=== PATIENT | female | born 1985 | race African-American/Black ===

== ENCOUNTER 2018-03-02 14:02 | Emergency (ER) | payer MEDICAID ==
[~2018-03-02] VITALS: Ht 157.5 cm; Wt 81.6 kg
[2018-03-02] MEDS ORDERED: Ketorolac 30mg Inj IM ONE (14:45)
[2018-03-02] MEDS ORDERED: EXCEDRIN MIGRA1 EACH PO (15:00)
--- NOTE | 2018-03-02 15:00 | Emergency Room Report ---
History of Present Illness General Chief Complaint: Headache Source: Patient Present Illness HPI 32-year-old female patient presents ER complaining of headache for the past 2 days. Patient reports headache is frontal bilaterally. Denies worse headache of life. Reports history of migraines, states this feels similar. Denies vomiting or vision changes. Reports headache was slow in onset. Denies congestion or fever. Reports up to date on vaccinations. Denies photophobia or phonophobia. Reports neck pain this time. Denies recent injury or trauma. Denies fever, chest pain, shortness of breath. reports previously took medication, does not remember the name of the medication, for migraines. Also reports history of taking sumatriptan. Reports has not seen primary care provider neurology specialist and "a while". Denies vomiting. Allergies: Coded Allergies: No Known Allergies (Unverified , 03/02/18) Patient History Past Medical History: see triage record Last Menstrual Period: 02/24/18 Reviewed Nursing Documentation: PMH: Agreed; PSxH: Agreed Nursing Documentation-PMH Past Medical History: No History, Except For Hx Cardiac Problems: No - migraine Review of Systems All Other Systems: negative except mentioned in HPI Physical Exam Vital Signs Date Time Temp Pulse Resp B/P (MAP) Pulse Ox O2 Delivery O2 Flow Rate FiO2 03/02/18 14:10 98.1 92 18 130/89 98 Room Air Sp02 EP Interpretation: reviewed, normal General Appearance: well appearing, no apparent distress, alert, GCS 15, non- toxic Head: normocephalic, atraumatic, other - TTP over frontal and maxillary sinuses Eyes: bilateral eye normal inspection, bilateral eye PERRL ENT: hearing grossly normal, normal pharynx, no angioedema, normal voice, TMs + canals normal, uvula midline, moist mucus membranes, nasal congestion Neck: full range of motion Respiratory: lungs clear, normal breath sounds, no rhonchi, no respiratory distress, no accessory muscle use, no wheezing, speaking full sentences Cardiovascular #1: regular rate, rhythm, no edema Gastrointestinal: non tender, soft, no mass, non-distended, no guarding, no rebound Genitourinary: no CVA tenderness Musculoskeletal: back normal, digits/nails normal, gait/station normal, normal range of motion, non-tender Neurologic: alert, oriented x3, responsive, water filterer helper III-XII nml as tested, motor strength/tone normal, sensory intact, cerebellar normal, normal gait, speech normal, other - negative Kernig, negative Brudzinski Psychiatric: mood/affect normal Skin: no rash Lymphatic: no adenopathy Medical Decision Making PA Attestation Dr. Christian is my supervising Physician whom patient management has been discussed with. Diagnostic Impression: Primary Impression: Headache Additional Impression: Sinusitis ER Course Pt presents to ED c/o headache. DDX considered but are not limited to migraine, cluster GERMAIN, tension GERMAIN, meningitis, ICH, meningitis, HTN, influenza. cranial nerves intact states the, no focal neuro deficits, does not require imaging at this time. VITAL SIGNS are WNL, patient is afebrile ER COURSE negative Kernig, negative Brudzinski, patient afebrile, low suspicion for meningitis. patient reports history of migraine. Advised patient to follow-up with primary care provider and discuss referral to neurology for further workup and evaluation. Provide patient with Reglan, Benadryl, Toradol. Patient reports symptoms still present. On physical exam maxillary sinus is tender to palpation, nasal congestion noted , likely sinusitis, possibly attributing to headache symptoms. will provide patient with Rx for sinusitis. follow with primary care provider. ER precautions given. DISCHARGE: -Rx provided Excedrin Migraine Rx provided for Sudafed Rx provided for Flonase At this time pt is stable for d/c to home. Patient is resting comfortably, in no acute distress, nontoxic appearing, talking and smiling. Will provide with patient care instructions and any necessary prescriptions. Patient to take medication as instructed. Care plan and follow-up instructions provided. Patient questions asked and answered. Patient instructed to follow-up with primary care provider in the next 3 days and discuss further referral with PCP to neurologist. ER precautions given. Patient instructed to return to ER immediately for any new or worsening of symptoms including but not limited to fever, neck stiffness , vision changes, and neurological symptoms. - Please note that this Emergency Department Report was dictated using [employer] snuff technology software, occasionally this can lead to erroneous entry secondary to interpretation by the dictation equipment. Last Vital Signs Date Time Temp Pulse Resp B/P (MAP) Pulse Ox O2 Delivery O2 Flow Rate FiO2 03/02/18 14:10 98.1 92 18 130/89 98 Room Air Status: improved Disposition: HOME, SELF-CARE Condition: Stable Scripts Fluticasone Propionate* (FLUTICASONE PROPIONATE*) 16 Gm [place].susp 1 SPRAY NASAL TWICE A DAY, #16 GM Prov: Ko Watters 03/02/18 Guaifen/Phenyleph/Acetaminophn (Sudafed PE Pressure+Pain+Mucus) 1 Each Tablet 1 EACH PO BID, #24 TAB Prov: Ko Watters 03/02/18 Aspirin/Acetaminophen/Caffeine (EXCEDRIN MIGRAINE GELTAB) 1 Each Tablet 1 EACH PO BID, #30 TAB Prov: Ko Watters 03/02/18 Patient Instructions: General Headache Without Cause, Migraine Headache, Sinus Headache Additional Instructions: Followup with primary care provider in 3 -5 days. Discuss referral to neurology. Take medications as directed. Patient questions asked and answered. ER precautions given, patient instructed to return to ER immediately for any new or worsening of symptoms. Ko Watters Mar 02, 2018 15:00
[2018-03-02] MEDS ORDERED: FLUTICASONE PRO16 G1 NASAL (15:28)
[2018-03-02] MEDS ORDERED: SUDAFED PE PRE1 EAC3 PO (15:28)
[2018-03-03 00:11] VITALS: BP 130/89
[2018-03-03 00:14] VITALS: BP 130/89
== END 2018-03-03 00:25 | disposition home or self-care (01) ==
LOC: EMR 15:40
DX: R51 Headache (principal); J32.9 Chronic sinusitis, unspecified
CPT/HCPCS: 96372; 99283; J1885